=== PATIENT | female | born 1980 | race Asian ===

== ENCOUNTER 2021-05-25 19:28 | Emergency (ER) | payer OTHER ==
[~2021-05-25] VITALS: Ht 149.9 cm; Wt 50.0 kg
[2021-05-25 19:50] VITALS: BP 103/72
[2021-05-25] MEDS ORDERED: ibuprofen tablet 400 MG TABLET PO ONE (21:40)
[2021-05-25 22:22] LABS: BASOPHILS % (AUTO) 0.2 % (0-1); HEMATOCRIT 38.2 % (35.0-45.0); LYMPHOCYTES # (AUTO) 0.8 X10'3 (1.1-4.8); LYMPHOCYTES % (AUTO) 19.9 % (21-51); MEAN CORPUSCULAR HEMOGLOBIN 28.8 PG (27.0-31.0); MEAN CORPUSCULAR HGB CONC 34.1 g/dL (33.0-36.5); MEAN CORPUSCULAR VOLUME 84.4 FL (78-98); MEAN PLATELET VOLUME 7.1 FL (7.4-10.4); MONOCYTES # (AUTO) 0.5 X10'3 (0-0.9); MONOCYTES % (AUTO) 12.7 % (2-12); NEUTROPHILS # (AUTO) 2.6 X10'3 (1.8-7.7); NEUTROPHILS % (AUTO) 66.2 % (42-75); PLATELET COUNT 261 X10'3 (140-440); RED BLOOD COUNT 4.53 X10'6 (4.20-5.60); RED CELL DISTRIBUTION WIDTH 13.1 % (11.5-14.5); WHITE BLOOD COUNT 3.9 X10'3 (4.5-11.0)
[2021-05-25 22:34] LABS: ALANINE AMINOTRANSFERASE 27 U/L (12-78); ALBUMIN 3.3 G/DL (3.4-5.0); ALBUMIN/GLOBULIN RATIO 0.9 (1.1-1.5); ALKALINE PHOSPHATASE 154 IU/L (46-116); ANION GAP 7 (8-16); ASPARTATE AMINO TRANSFERASE 15 U/L (10-37); BILIRUBIN,TOTAL 0.2 MG/DL (0.1-1.0); BLOOD UREA NITROGEN 12 MG/DL (7-18); BUN/CREATININE RATIO 14.6 (6.6-38.0); CALCIUM 8.6 MG/DL (8.5-10.1); CHLORIDE 96 MMOL/L (99-107); CREATININE 0.82 MG/DL (0.40-0.90); SODIUM 132 MMOL/L (135-145); TOTAL CARBON DIOXIDE 28.6 MMOL/L (24-32); eGFR 77 ML/MIN
[2021-05-25 22:40] LABS: GLUCOSE 652 MG/DL (70-104)
[2021-05-25 22:44] LABS: D-DIMER < 0.19 MG/L FEU (0-0.50)
[2021-05-25] MEDS ORDERED: normal saline 1000ML IV soln IVB ONE (23:35)
[2021-05-25] MEDS ORDERED: insulin regular, human 10 units/0.1 ml syringe SQ ONE (23:40)
[2021-05-26] MEDS ORDERED: METF750T46 PO (01:16)
[2021-05-26] MEDS ORDERED: NIRM1TAB PO (01:16)
== END 2021-05-26 01:25 | disposition home or self-care (01) ==
LOC: ER 19:31
DX: U07.1 COVID-19 (principal); R09.1 Pleurisy; E11.65 Type 2 diabetes mellitus with hyperglycemia; R07.89 Other chest pain; R06.02 Shortness of breath; E78.00 Pure hypercholesterolemia, unspecified; Z79.899 Other long term (current) drug therapy
CPT/HCPCS: 36415; 71045; 80053; 82948; 85025; 85379; 87635; 93005; 96360; 96372; 99285; C9803; J1815; J7030